=== PATIENT | female | born 1940 | race Caucasian/White ===

== ENCOUNTER 2017-06-17 18:42 | Inpatient (IN) | payer MEDICARE, MEDICAID ==
[~2017-06-17] VITALS: Ht 167.6 cm; Wt 66.7 kg
[2017-06-17 21:05] LABS: microscopic required? YES; urine erythrocyte NEGATIVE (NEGATIVE)
[2017-06-17 21:07] LABS: BASOPHIL % 0.3 % (0-2); PLATELET COUNT 268 x10^3mcL (130-400); RED CELL DISTRIBUTION WIDTH 13.6 % (11.5-14.5)
[2017-06-17 21:22] LABS: CALCIUM 8.6 mg/dL (8.5-10.1); CARBON DIOXIDE 27.5 mmol/L (21-32); CHLORIDE SERUM 97 mmol/L (98-107); CREATININE SERUM 0.7 mg/dL (0.6-1.0); GLUCOSE SERUM 192 mg/dL (74-106); POTASSIUM SERUM 4.4 mmol/L (3.5-5.1); SODIUM SERUM 128 mmol/L (136-145)
[2017-06-17 21:26] LABS: ALBUMIN 3.4 g/dL (3.4-5.0); ALKALINE PHOSPHATASE 64 U/L (46-116); ALT/SGPT 34 U/L (14-59); AMYLASE 46 U/L (25-115); AST/SGOT 20 U/L (15-37); BILIRUBIN TOTAL 0.3 mg/dL (0.20-1.00); LIPASE 184 IU/L (73-393); TOTAL PROTEIN, SERUM 7.3 g/dL (6.4-8.2)
[2017-06-17] MEDS ORDERED: CARVEDILOL3.125 M1 PO (22:41)
[2017-06-17] MEDS ORDERED: NOR5 PO (22:41)
[2017-06-17] MEDS ORDERED: FOSAMAX70 M1 PO (22:41)
[2017-06-17] MEDS ORDERED: LOSARTAN POTASS25 M1 PO (22:41)
[2017-06-17] MEDS ORDERED: GLUCOPHAGE XR500 MG PO (22:41)
[2017-06-17] MEDS ORDERED: ASPIR 8181 MG PO (22:42)
[2017-06-17] MEDS ORDERED: ISOSORBIDE MONO30 MG PO (22:42)
[2017-06-17 23:16] VITALS: BP 159/73
[2017-06-18 00:06] LABS: PHOSPHOROUS 3.5 mg/dL (2.5-4.9)
[2017-06-18 00:07] LABS: T3 TOTAL 1.12 ng/mL
[2017-06-18 00:27] LABS: FREE T4 1.14 ng/dL (0.76-1.46); FREE THYROXINE INDEX 3.2 ug/dL (1.4-4.5); T4(THYROXINE) 8.4 ug/dL (4.7-13.3)
[2017-06-18 06:19] LABS: CALCIUM 8.9 mg/dL (8.5-10.1); CARBON DIOXIDE 23.9 mmol/L (21-32); CHLORIDE SERUM 103 mmol/L (98-107); CREATININE SERUM 0.7 mg/dL (0.6-1.0); GLUCOSE SERUM 173 mg/dL (74-106); MAGNESIUM 2.1 mg/dL (1.8-2.4); PHOSPHOROUS 3.1 mg/dL (2.5-4.9); POTASSIUM SERUM 3.8 mmol/L (3.5-5.1); SODIUM SERUM 137 mmol/L (136-145)
[2017-06-18 06:30] LABS: TOTAL IRON BINDING CAPACITY 331 ug/dL (250-450)
[2017-06-18 06:31] LABS: IRON 34 ug/dL (50-170)
[2017-06-18 06:40] LABS: BASOPHIL % 0.3 % (0-2); PLATELET COUNT 277 x10^3mcL (130-400); RED CELL DISTRIBUTION WIDTH 13.3 % (11.5-14.5)
[2017-06-18 06:46] VITALS: BP 117/63
[2017-06-18 08:02] LABS: RED BLOOD CELLS 4.14 M/mm3 (4.10-5.10)
[2017-06-18 10:00] VITALS: BP 167/64
[2017-06-18 14:16] VITALS: BP 124/56
[2017-06-18 18:13] VITALS: BP 138/62
[2017-06-18 21:40] VITALS: BP 128/54
[2017-06-19 04:57] VITALS: BP 136/63
[2017-06-19 06:16] LABS: BASOPHIL % 0.4 % (0-2); PLATELET COUNT 250 x10^3mcL (130-400); RED CELL DISTRIBUTION WIDTH 13.8 % (11.5-14.5)
[2017-06-19 07:57] LABS: CALCIUM 8.5 mg/dL (8.5-10.1); CARBON DIOXIDE 24.6 mmol/L (21-32); CHLORIDE SERUM 106 mmol/L (98-107); CREATININE SERUM 0.6 mg/dL (0.6-1.0); GLUCOSE SERUM 172 mg/dL (74-106); POTASSIUM SERUM 3.9 mmol/L (3.5-5.1); SODIUM SERUM 140 mmol/L (136-145)
[2017-06-19 09:46] VITALS: BP 127/63
[2017-06-19 14:26] VITALS: BP 140/65
[2017-06-19] MEDS ORDERED: CIPRO500 MG PO (14:59)
[2017-06-19] MEDS ORDERED: LAC PO (15:03)
[2017-06-19 15:29] VITALS: BP 140/65
== END 2017-06-19 16:34 | disposition home or self-care (01) | DRG 689 ==
LOC: ED 18:42 → DU 22:41
PROVIDERS: Emergency Medicine; Family Medicine; ADMIT Family Medicine
DX: N30.90 Cystitis, unspecified without hematuria (principal); N17.0 Acute kidney failure with tubular necrosis; E87.1 Hypo-osmolality and hyponatremia; N13.30 Unspecified hydronephrosis; D68.69 Other thrombophilia; E11.59 Type 2 diabetes mellitus with other circulatory complications; E11.65 Type 2 diabetes mellitus with hyperglycemia; K59.00 Constipation, unspecified; K76.0 Fatty (change of) liver, not elsewhere classified; K80.20 Calculus of gallbladder without cholecystitis without obstruction; I10 Essential (primary) hypertension; D64.9 Anemia, unspecified; E78.5 Hyperlipidemia, unspecified; M81.0 Age-related osteoporosis without current pathological fracture; Z68.23 Body mass index [BMI] 23.0-23.9, adult; Z79.84 Long term (current) use of oral hypoglycemic drugs; Z79.82 Long term (current) use of aspirin
CPT/HCPCS: 82962; 83880; 84439; J0696; J1885; J2765; J7030; Q0092

== ENCOUNTER 2017-07-09 13:39 | Emergency (ER) | payer MEDICARE, MEDICAID ==
[~2017-07-09 13:39] MED LIST: ASPIR 8181 MG PO; CARVEDILOL3.125 M1 PO; CIPRO500 MG PO; FOSAMAX70 M1 PO; GLUCOPHAGE XR500 MG PO; ISOSORBIDE MONO30 MG PO; LAC PO; LOSARTAN POTASS25 M1 PO; NOR5 PO
[2017-07-09 15:33] LABS: BASOPHIL % 0.4 % (0-2); PLATELET COUNT 279 x10^3mcL (130-400); RED CELL DISTRIBUTION WIDTH 14.2 % (11.5-14.5)
[2017-07-09 15:38] LABS: CALCIUM 9.2 mg/dL (8.5-10.1); CARBON DIOXIDE 25.7 mmol/L (21-32); CHLORIDE SERUM 103 mmol/L (98-107); CREATININE SERUM 0.7 mg/dL (0.6-1.0); GLUCOSE SERUM 124 mg/dL (74-106); POTASSIUM SERUM 4.4 mmol/L (3.5-5.1); SODIUM SERUM 137 mmol/L (136-145)
[2017-07-09 15:42] LABS: ALBUMIN 3.7 g/dL (3.4-5.0); ALKALINE PHOSPHATASE 59 U/L (46-116); ALT/SGPT 26 U/L (14-59); AST/SGOT 18 U/L (15-37); BILIRUBIN TOTAL 0.2 mg/dL (0.20-1.00); TOTAL PROTEIN, SERUM 7.6 g/dL (6.4-8.2)
[2017-07-09 18:00] VITALS: BP 144/71
== END 2017-07-09 18:00 | disposition home or self-care (01) ==
LOC: ED 13:39
PROVIDERS: Emergency Medicine
DX: G44.209 Tension-type headache, unspecified, not intractable (principal); E11.9 Type 2 diabetes mellitus without complications; I10 Essential (primary) hypertension; Z88.5 Allergy status to narcotic agent; Z79.84 Long term (current) use of oral hypoglycemic drugs
CPT/HCPCS: 36415; 83880; J1885; Q0092

== ENCOUNTER 2017-07-11 12:05 | Emergency (ER) | payer MEDICARE, MEDICAID ==
[2017-07-11 12:44] LABS: BASOPHIL % 0.3 % (0-2); PLATELET COUNT 267 x10^3mcL (130-400)
[2017-07-11 12:52] LABS: CALCIUM 9.3 mg/dL (8.5-10.1); CARBON DIOXIDE 25.2 mmol/L (21-32); CHLORIDE SERUM 99 mmol/L (98-107); CREATININE SERUM 0.8 mg/dL (0.6-1.0); GLUCOSE SERUM 180 mg/dL (74-106); POTASSIUM SERUM 4.6 mmol/L (3.5-5.1); SODIUM SERUM 134 mmol/L (136-145)
[2017-07-11 12:56] LABS: ALBUMIN 3.6 g/dL (3.4-5.0); ALKALINE PHOSPHATASE 61 U/L (46-116); ALT/SGPT 27 U/L (14-59); AST/SGOT 17 U/L (15-37); BILIRUBIN TOTAL 0.2 mg/dL (0.20-1.00); TOTAL PROTEIN, SERUM 7.6 g/dL (6.4-8.2)
[2017-07-11 15:13] VITALS: BP 118/64
== END 2017-07-11 15:13 | disposition home or self-care (01) ==
LOC: ED 12:05
PROVIDERS: Emergency Medicine
DX: T50.8X5A Adverse effect of diagnostic agents, initial encounter (principal); E04.9 Nontoxic goiter, unspecified; E11.9 Type 2 diabetes mellitus without complications; I10 Essential (primary) hypertension; Y92.89 Other specified places as the place of occurrence of the external cause; Z90.710 Acquired absence of both cervix and uterus; Z88.5 Allergy status to narcotic agent
CPT/HCPCS: J1885; J7030; J7040; J7613; Q0163; Q9967

== ENCOUNTER 2017-08-11 17:00 | Inpatient (IN) | payer MEDICARE, MEDICAID ==
[~2017-08-11] VITALS: Ht 152.4 cm; Wt 62.0 kg
[2017-08-11 17:47] LABS: BASOPHIL % 0.4 % (0-2); PLATELET COUNT 237 x10^3mcL (130-400); RED CELL DISTRIBUTION WIDTH 14.1 % (11.5-14.5)
[2017-08-11 17:55] LABS: CARBON DIOXIDE 27.8 mmol/L (21-32); CHLORIDE SERUM 95 mmol/L (98-107); CREATININE SERUM 0.7 mg/dL (0.6-1.0); GLUCOSE SERUM 146 mg/dL (74-106); SODIUM SERUM 130 mmol/L (136-145)
[2017-08-11 18:12] LABS: ALBUMIN 3.6 g/dL (3.4-5.0); ALKALINE PHOSPHATASE 53 U/L (46-116); ALT/SGPT 34 U/L (14-59); AMYLASE 52 U/L (25-115); AST/SGOT 23 U/L (15-37); BILIRUBIN TOTAL 0.27 mg/dL (0.20-1.00); LIPASE 278 IU/L (73-393); TOTAL PROTEIN, SERUM 7.4 g/dL (6.4-8.2)
[2017-08-11] MEDS ORDERED: COREG CR20 MG PO (18:40)
[2017-08-11 21:12] LABS: MAGNESIUM 2.1 mg/dL (1.8-2.4); PHOSPHOROUS 3.4 mg/dL (2.5-4.9)
[2017-08-11 21:14] VITALS: BP 141/57
[2017-08-11 21:27] LABS: microscopic required? YES; urine erythrocyte NEGATIVE (NEGATIVE)
[2017-08-12 06:39] LABS: BASOPHIL % 0.4 % (0-2); PLATELET COUNT 243 x10^3mcL (130-400)
[2017-08-12 06:42] LABS: RED CELL DISTRIBUTION WIDTH 14.6 % (11.5-14.5)
[2017-08-12 06:51] LABS: CALCIUM 8.8 mg/dL (8.5-10.1); CARBON DIOXIDE 27.4 mmol/L (21-32); CHLORIDE SERUM 105 mmol/L (98-107); CREATININE SERUM 0.6 mg/dL (0.6-1.0); GLUCOSE SERUM 132 mg/dL (74-106); POTASSIUM SERUM 4.1 mmol/L (3.5-5.1); SODIUM SERUM 139 mmol/L (136-145)
[2017-08-12 07:14] VITALS: BP 145/65
[2017-08-12 09:29] VITALS: BP 149/62
[2017-08-12 14:22] VITALS: BP 119/49
[2017-08-12 17:17] VITALS: BP 119/54
[2017-08-12 20:43] VITALS: BP 105/43
[2017-08-13 05:42] VITALS: BP 136/53
[2017-08-13 06:07] LABS: CALCIUM 8.7 mg/dL (8.5-10.1); CARBON DIOXIDE 24.1 mmol/L (21-32); CHLORIDE SERUM 105 mmol/L (98-107); CREATININE SERUM 0.6 mg/dL (0.6-1.0); GLUCOSE SERUM 128 mg/dL (74-106); POTASSIUM SERUM 3.4 mmol/L (3.5-5.1); SODIUM SERUM 139 mmol/L (136-145)
[2017-08-13 06:20] LABS: BASOPHIL % 0.4 % (0-2); PLATELET COUNT 224 x10^3mcL (130-400); RED CELL DISTRIBUTION WIDTH 14.1 % (11.5-14.5)
[2017-08-13 09:44] VITALS: BP 153/62
[2017-08-13 10:07] VITALS: BP 153/62
[2017-08-13] MEDS ORDERED: ZOFI PO (10:37)
[2017-08-13] MEDS ORDERED: COL100 PO (10:37)
[2017-08-13] MEDS ORDERED: LAC PO (10:39)
[2017-08-13] MEDS ORDERED: CIPRO500 MG/5 M PO (10:42)
== END 2017-08-13 12:10 | disposition home or self-care (01) | DRG 689 ==
LOC: ED 17:00 → DU 19:59
PROVIDERS: Emergency Medicine; Family Medicine; ADMIT Family Medicine Sports Medicine
DX: N39.0 Urinary tract infection, site not specified (principal); N17.0 Acute kidney failure with tubular necrosis; E87.1 Hypo-osmolality and hyponatremia; D68.69 Other thrombophilia; E86.0 Dehydration; N81.6 Rectocele; E11.65 Type 2 diabetes mellitus with hyperglycemia; E87.8 Other disorders of electrolyte and fluid balance, not elsewhere classified; K59.00 Constipation, unspecified; I10 Essential (primary) hypertension; K81.9 Cholecystitis, unspecified; N13.30 Unspecified hydronephrosis; H26.9 Unspecified cataract; D64.9 Anemia, unspecified; M81.0 Age-related osteoporosis without current pathological fracture; Z79.82 Long term (current) use of aspirin; Z68.26 Body mass index [BMI] 26.0-26.9, adult; Z79.84 Long term (current) use of oral hypoglycemic drugs
CPT/HCPCS: 82962; 83880; J0696; J1885; J2405; J3010; J7030; Q0092; Q9966; Q9967

== ENCOUNTER 2017-09-04 10:22 | Emergency (ER) | payer MEDICARE, MEDICAID ==
[~2017-09-04] VITALS: Ht 162.6 cm; Wt 63.0 kg
[~2017-09-04 10:22] MED LIST changes: +CIPRO500 MG/5 M PO; +COL100 PO; +COREG CR20 MG PO; +ZOFI PO
[2017-09-04 10:36] VITALS: BP 123/64
== END 2017-09-04 13:04 | disposition home or self-care (01) ==
LOC: ED 10:22
DX: S80.01XA Contusion of right knee, initial encounter (principal); I10 Essential (primary) hypertension; E11.9 Type 2 diabetes mellitus without complications; Z79.899 Other long term (current) drug therapy; Z88.5 Allergy status to narcotic agent; W18.30XA Fall on same level, unspecified, initial encounter; Y93.89 Activity, other specified; Y92.89 Other specified places as the place of occurrence of the external cause; Y99.8 Other external cause status

== ENCOUNTER 2018-07-10 19:39 | Inpatient (IN) | payer OTHER, MEDICAID ==
[~2018-07-10] VITALS: Ht 152.4 cm; Wt 64.2 kg
[2018-07-10 19:49] VITALS: Ht 152.4 cm; Wt 64.2 kg
[2018-07-10 21:05] LABS: BASOPHIL % 0.4 % (0-2); PLATELET COUNT 252 x10^3mcL (130-400); RED CELL DISTRIBUTION WIDTH 13.1 % (11.5-14.5)
[2018-07-10 21:13] LABS: CALCIUM 9.3 mg/dL (8.5-10.1); CARBON DIOXIDE 25.1 mmol/L (21-32); CHLORIDE SERUM 95 mmol/L (98-107); GLUCOSE SERUM 215 mg/dL (74-106); POTASSIUM SERUM 3.3 mmol/L (3.5-5.1); SODIUM SERUM 131 mmol/L (136-145)
[2018-07-10 21:20] LABS: ALBUMIN 3.6 g/dL (3.4-5.0); ALKALINE PHOSPHATASE 51 U/L (46-116); ALT/SGPT 63 U/L (14-59); AST/SGOT 28 U/L (15-37); BILIRUBIN TOTAL 0.4 mg/dL (0.20-1.00); LIPASE 186 IU/L (73-393); TOTAL PROTEIN, SERUM 7.4 g/dL (6.4-8.2)
[2018-07-10] MEDS ORDERED: GLU850 PO (21:45)
[2018-07-10] MEDS ORDERED: LOSARTAN POTASS25 M1 PO (21:45)
[2018-07-11 02:32] VITALS: BP 126/54
[2018-07-11 05:14] VITALS: BP 136/64
[2018-07-11 06:51] LABS: CALCIUM 9.2 mg/dL (8.5-10.1); CARBON DIOXIDE 29.9 mmol/L (21-32); CHLORIDE SERUM 98 mmol/L (98-107); CHOLESTEROL 183 mg/dL (<200); CHOLESTEROL/HDL RATIO 4.9; CREATININE SERUM 0.8 mg/dL (0.6-1.0); GLUCOSE SERUM 196 mg/dL (74-106); HDL CHOLESTEROL 37 mg/dL (40-60); POTASSIUM SERUM 3.1 mmol/L (3.5-5.1); SODIUM SERUM 136 mmol/L (136-145); TRIGLYCERIDES 178 mg/dL (<150)
[2018-07-11 08:39] VITALS: BP 130/60
[2018-07-11 12:04] VITALS: BP 103/53
[2018-07-11 16:04] VITALS: BP 103/53
[2018-07-11 16:54] VITALS: BP 102/44
== END 2018-07-11 18:29 | disposition home or self-care (01) | DRG 313 ==
LOC: ED 19:39 → DU 21:57
PROVIDERS: Emergency Medicine; Internal Medicine Pulmonary Disease
DX: R07.89 Other chest pain (principal); I25.10 Atherosclerotic heart disease of native coronary artery without angina pectoris; E11.65 Type 2 diabetes mellitus with hyperglycemia; E04.9 Nontoxic goiter, unspecified; I10 Essential (primary) hypertension; Z68.28 Body mass index [BMI] 28.0-28.9, adult; Z86.711 Personal history of pulmonary embolism; Z79.84 Long term (current) use of oral hypoglycemic drugs; Z86.718 Personal history of other venous thrombosis and embolism
CPT/HCPCS: 82962; 83880; C9113; Q0092; Q9967

== ENCOUNTER 2018-08-06 16:20 | Inpatient (IN) | payer OTHER, MEDICAID ==
[~2018-08-06] VITALS: Ht 157.5 cm; Wt 66.4 kg
[~2018-08-06 16:20] MED LIST changes: +GLU850 PO
[2018-08-06] MEDS ORDERED: ISOSORBIDE DINIT5 M2 PO (17:03)
[2018-08-06] MEDS ORDERED: NITROSTAT0.4 MG SL (17:04)
[2018-08-06 17:18] LABS: BASOPHIL % 0.1 % (0-2); PLATELET COUNT 238 x10^3mcL (130-400); RED CELL DISTRIBUTION WIDTH 12.8 % (11.5-14.5)
[2018-08-06 17:21] LABS: CALCIUM 8.9 mg/dL (8.5-10.1); CARBON DIOXIDE 24.3 mmol/L (21-32); CHLORIDE SERUM 97 mmol/L (98-107); CREATININE SERUM 0.8 mg/dL (0.6-1.0); GLUCOSE SERUM 193 mg/dL (74-106); POTASSIUM SERUM 4.5 mmol/L (3.5-5.1); SODIUM SERUM 131 mmol/L (136-145)
[2018-08-06 20:21] VITALS: BP 132/85
[2018-08-06 20:25] VITALS: Ht 157.5 cm; Wt 66.4 kg
[2018-08-06 20:42] LABS: UA SPECIFIC GRAVITY 1.015 (1.005-1.035); microscopic required? YES; urine erythrocyte NEGATIVE (NEGATIVE)
[2018-08-07 05:42] VITALS: BP 123/50
[2018-08-07 06:28] LABS: BASOPHIL % 0.2 % (0-2); PLATELET COUNT 234 x10^3mcL (130-400); RED CELL DISTRIBUTION WIDTH 13.1 % (11.5-14.5)
[2018-08-07 06:47] LABS: CALCIUM 8.6 mg/dL (8.5-10.1); CARBON DIOXIDE 26.7 mmol/L (21-32); CHLORIDE SERUM 105 mmol/L (98-107); CHOLESTEROL 165 mg/dL (<200); CHOLESTEROL/HDL RATIO 4.6; CREATININE SERUM 0.8 mg/dL (0.6-1.0); GLUCOSE SERUM 164 mg/dL (74-106); HDL CHOLESTEROL 36 mg/dL (40-60); MAGNESIUM 1.9 mg/dL (1.8-2.4); POTASSIUM SERUM 3.8 mmol/L (3.5-5.1); SODIUM SERUM 143 mmol/L (136-145); TRIGLYCERIDES 153 mg/dL (<150)
[2018-08-07 08:07] VITALS: BP 134/56
[2018-08-07 11:56] VITALS: BP 121/59
[2018-08-07 16:56] VITALS: BP 109/57
[2018-08-07 20:57] VITALS: BP 92/72
[2018-08-08 04:34] VITALS: BP 114/41
[2018-08-08 08:26] VITALS: BP 127/51
[2018-08-08 12:11] VITALS: BP 108/57
[2018-08-08 14:24] VITALS: BP 108/57
== END 2018-08-08 15:14 | disposition home or self-care (01) | DRG 206 ==
LOC: ED 16:20 → DU 18:40
PROVIDERS: Emergency Medicine; Internal Medicine Pulmonary Disease
DX: M94.0 Chondrocostal junction syndrome [Tietze] (principal); I10 Essential (primary) hypertension; E11.9 Type 2 diabetes mellitus without complications; K21.9 Gastro-esophageal reflux disease without esophagitis; E78.5 Hyperlipidemia, unspecified; Z68.26 Body mass index [BMI] 26.0-26.9, adult
CPT/HCPCS: 82962; A9500; J1956; J2405; J2785; J3010; J7030; J7050; Q0092

== ENCOUNTER 2019-01-08 14:15 | Emergency (ER) | payer OTHER, MEDICAID ==
[~2019-01-08] VITALS: Ht 152.4 cm; Wt 66.2 kg
[~2019-01-08 14:15] MED LIST changes: +ISOSORBIDE DINIT5 M2 PO; +NITROSTAT0.4 MG SL
[2019-01-08 14:21] VITALS: BP 114/44; Ht 152.4 cm; Wt 66.2 kg
== END 2019-01-08 16:20 | disposition home or self-care (01) ==
LOC: ED 14:15
DX: J11.1 Influenza due to unidentified influenza virus with other respiratory manifestations (principal); I10 Essential (primary) hypertension; E11.9 Type 2 diabetes mellitus without complications; Z90.710 Acquired absence of both cervix and uterus; Z88.5 Allergy status to narcotic agent; Z98.890 Other specified postprocedural states